=== PATIENT | female | born 1970 | race Caucasian/White ===

== ENCOUNTER 2019-03-16 13:56 | Outpatient (CLI) | payer OTHER ==
--- NOTE | 2019-03-16 14:22 | RAD ---
PA AND LATERAL VIEWS CHEST: Date: 03/16/19 HISTORY: Cough and fever. FINDINGS: The heart size is normal. The lungs are expanded without focal areas of consolidation, pneumothoraces , or pleural effusions. There are degenerative changes in the spine. IMPRESSION: No radiographic evidence of acute cardiopulmonary process. POS: [facility]
== END 2019-03-16 13:57 | disposition home or self-care (01) ==
LOC: RAD-FRANK 13:56
PROVIDERS: ATTEND Nurse Practitioner Family
DX: R50.9 Fever, unspecified (principal); R05 Cough
CPT/HCPCS: 71046

== ENCOUNTER 2021-05-10 08:13 | Outpatient (CLI) | payer BC | END 2021-05-10 08:14 | disposition home or self-care (01) | LOC: RAD-FRANK 08:13 | PROVIDERS: ATTEND Nurse Practitioner Family | DX: M25.552 Pain in left hip (principal) ==

== ENCOUNTER 2021-12-14 07:55 | Outpatient (CLI) | payer BC | END 2021-12-14 07:56 | disposition home or self-care (01) | LOC: RAD-FRANK 07:55 | PROVIDERS: ATTEND Nurse Practitioner Family | DX: M79.672 Pain in left foot (principal) ==

== ENCOUNTER 2022-02-23 14:14 | Outpatient (CLI) | payer BC ==
[2022-02-23 15:20] LABS: #Eosinphils 0.1 10x3/uL (0.0-0.5); #Monocytes 0.6 10x3/uL (0.0-1.1); %Basophils 0.3 % (0.0-2.0); %Eosinophils 1.4 % (0.0-6.0); %Lymphocytes 28.4 % (18.0-47.0); %Monocytes 9.2 % (0.0-10.0); %Neutrophils 60.4 % (40.0-75.0); Hemoglobin 12.8 g/dL (12.0-15.5); Mean Corpuscular Hemoglobin 29.2 pg (27.0-33.0); Mean Corpuscular Volume 88.6 fl (81.6-98.3); Mean Platelet Volume 9.1 fl (7.4-10.4); Platelet Count 257 10x3/uL (150-450); RBC Distribution Width 13.6 % (11.5-14.5); Red Blood Cell (RBC) Count 4.38 10x6/uL (3.90-5.03); White Blood Cell (WBC) Count 6.6 10x3/uL (3.5-10.5)
[2022-02-23 15:35] LABS: Prothrombin Time 10.7 sec (9.5-12.1)
[2022-02-23 15:45] LABS: Anion Gap 14 mmol/L (10-20); BUN (Urea Nitrogen) 14 mg/dL (9.8-20.1); Calc. Creatinine Clearance 0 mL/min (70-130); Calcium 9.4 mg/dL (7.8-10.44); Carbon Dioxide 23 mmol/L (22-29); Chloride 107 mmol/L (98-107); Glucose 89 mg/dL (70-105); Potassium 3.8 mmol/L (3.5-5.1); Sodium 140 mmol/L (136-145)
[2022-02-24 16:10] LABS: SARS-CoV-2 PCR by NAA Not Detected (NotDetected)
== END 2022-02-23 14:15 | disposition home or self-care (01) ==
LOC: LABBT 14:14
PROVIDERS: ATTEND Orthopaedic Surgery
DX: Z01.818 Encounter for other preprocedural examination (principal); M16.12 Unilateral primary osteoarthritis, left hip; Z20.822 Contact with and (suspected) exposure to COVID-19
CPT/HCPCS: 80048; 85025; 85610; 87081; 93005; 93010; U0003; U0005

== ENCOUNTER 2022-02-27 07:24 | Observation (INO) | payer BC ==
[2022-02-26 08:38] VITALS: BMI 34.5
[2022-02-27] MEDS ORDERED: Sodium Chloride 0.9% 100 ML ONE (07:44)
[2022-02-27] MEDS ORDERED: Tranexamic Acid 1,000 MG/10 ML VIAL ONE ×2 (07:44→12:27)
[2022-02-27] MEDS ORDERED: Vancomycin HCl 1.5 GM in Sodium Chloride 0.9% 250 ML 300 ML IVPB SCH ×2 (08:00→21:00)
[2022-02-27] MEDS ORDERED: Clindamycin/D5W 600 MG in Premix Bag 1 BAG IVPB SCH (08:00)
[2022-02-27] MEDS ORDERED: Midazolam HCl 2 mg/2 ml Vial ONE (08:11)
[2022-02-27] MEDS ORDERED: Fentanyl 100 MCG/2 ML VIAL ONE ×4 (08:12→12:35)
[2022-02-27] MEDS ORDERED: Levofloxacin 500 mg/D5W 100 ml Premix Bag ONE (09:25)
[2022-02-27] MEDS ORDERED: Clindamycin/D5W 600 mg/50 ml Premix Bag ONE (09:25)
[2022-02-27] MEDS ORDERED: Bupivacaine 0.25% 10 ML VIAL ONE (09:40)
[2022-02-27] MEDS ORDERED: SUGAMMADEX SODIUM 200 MG/2 ML VIAL ONE (09:40)
[2022-02-27] MEDS ORDERED: Succinylcholine 200 MG/10 ml SYRINGE FS ONE (09:48)
[2022-02-27] MEDS ORDERED: PHENYLEPHRINE-NS 100 MCG/ML 10 ML SYRINGE ONE (09:48)
[2022-02-27] MEDS ORDERED: ePHEDrine 50 MG/ML VIAL ONE (09:48)
[2022-02-27] MEDS ORDERED: Dexamethasone 20 MG/5 ML VIAL ONE (09:48)
[2022-02-27] MEDS ORDERED: PROPOFOL 200 MG/20 ML VIAL ONE (09:48)
[2022-02-27] MEDS ORDERED: Lidocaine 1.5% w/Epi 1:200K 30 ML VIAL (Epid Use) ONE (09:48)
[2022-02-27] MEDS ORDERED: Rocuronium Bromide 10 MG/ML (10ML VIAL) ONE (09:48)
[2022-02-27] MEDS ORDERED: Lidocaine 1% PF 5 ML VIAL ONE (09:48)
[2022-02-27] MEDS ORDERED: Ondansetron PF 4 MG/2 ML Vial ONE (09:48)
[2022-02-27] MEDS ORDERED: Naloxone HCl 0.4 mg/ml Vial IV PRN (10:00)
[2022-02-27] MEDS ORDERED: traMADol HCl 50 MG TAB PO PRN ×2 (10:00)
[2022-02-27] MEDS ORDERED: Zolpidem Tartrate 5 MG TAB PO PRN ×2 (10:00→12:23)
[2022-02-27] MEDS ORDERED: diphenhydrAMINE 50 MG/ML VIAL IVP PRN (10:00)
[2022-02-27] MEDS ORDERED: Moisturizing Cream (Eucerin) 113 GM JAR TOP PRN (10:00)
[2022-02-27] MEDS ORDERED: Naloxone HCl 0.4 mg/ml Vial IVP PRN (10:00)
[2022-02-27] MEDS ORDERED: diphenhydrAMINE 50 MG/ML VIAL IM PRN (10:00)
[2022-02-27] MEDS ORDERED: Ondansetron PF 4 MG/2 ML Vial IVP PRN ×2 (10:00→12:23)
[2022-02-27] MEDS ORDERED: Promethazine HCl 25 MG SUPP PR PRN (10:00)
[2022-02-27] MEDS ORDERED: Bupivacaine 0.25% 10 ML VIAL EPIDURAL PRN (10:00)
[2022-02-27] MEDS ORDERED: Promethazine HCl 25 MG/ML VIAL IM PRN ×2 (10:00→12:23)
[2022-02-27] MEDS ORDERED: Acetaminophen 325 MG TAB PO PRN ×2 (10:07→12:23)
[2022-02-27] MEDS ORDERED: Tranexamic Acid 1,000 MG in Sodium Chloride 0.9% 100 ML IVPB SCH (12:00)
[2022-02-27] MEDS ORDERED: diphenhydrAMINE 25 MG CAP PO PRN (12:23)
[2022-02-27] MEDS ORDERED: diphenhydrAMINE 50 MG/ML VIAL ONE (15:16)
[2022-02-27] MEDS: Ketorolac Tromethamine 30 MG/ML VIAL IVP SCH ×2 (16:57→17:59)
[2022-02-27] MEDS: Sodium Chloride 0.9% 1,000 ML IV SCH ×2 (16:57→20:47)
[2022-02-27] MEDS: HYDROcodone/Acetaminophen 5/325 mg Tablet PO PRN (18:00)
[2022-02-27] MEDS: Clindamycin/D5W 900 MG in Premix Bag 1 BAG IVPB SCH (18:01)
[2022-02-27] MEDS: diphenhydrAMINE 25 MG CAP PO PRN (20:39)
[2022-02-27] MEDS: Aspirin 81 mg Enteric Coated Tablet PO SCH (20:39)
[2022-02-28] MEDS: Clindamycin/D5W 900 MG in Premix Bag 1 BAG IVPB SCH (00:02)
[2022-02-28] MEDS: HYDROcodone/Acetaminophen 5/325 mg Tablet PO PRN ×2 (00:02→17:51)
[2022-02-28] MEDS: Ketorolac Tromethamine 30 MG/ML VIAL IVP SCH ×4 (00:03→17:51)
[2022-02-28] MEDS: Fentanyl 5 mcg/Bup 0.075% Cadd 100 ML EPIDURAL SCH ×2 (01:03→17:52)
[2022-02-28 05:22] LABS: Hemoglobin 9.7 g/dL (12.0-16.0); Mean Corpuscular HGB CONC 34.1 g/dL (32.0-36.0); Mean Corpuscular Hemoglobin 31.7 pg (27.0-31.0); Mean Corpuscular Volume 92.9 fL (78.0-98.0); Mean Platelet Volume 6.4 fL (7.4-10.4); Platelet Count 195 thou/uL (130-400); RBC Distribution Width 12.3 % (11.5-14.5); Red Blood Cell (RBC) Count 3.05 mill/uL (4.20-5.40); White Blood Cell (WBC) Count 7.3 thou/uL (4.8-10.8)
[2022-02-28] MEDS: diphenhydrAMINE 25 MG CAP PO PRN ×4 (05:31→20:18)
[2022-02-28] MEDS: Sodium Chloride 0.9% 1,000 ML IV SCH ×2 (09:57→19:34)
[2022-02-28] MEDS: Ferrous Gluconate 324 MG TAB PO SCH ×2 (10:02→20:18)
[2022-02-28] MEDS: Multivitamin W/ Minerals 1 TAB PO SCH (10:02)
[2022-02-28] MEDS: Senokot S 8.6-50 MG TAB PO SCH ×2 (10:03→20:18)
[2022-02-28] MEDS: Aspirin 81 mg Enteric Coated Tablet PO SCH ×3 (13:19→20:18)
[2022-03-01] MEDS: HYDROcodone/Acetaminophen 5/325 mg Tablet PO PRN ×4 (00:04→13:40)
[2022-03-01] MEDS: Ketorolac Tromethamine 30 MG/ML VIAL IVP SCH ×2 (00:05→05:42)
[2022-03-01] MEDS: Sodium Chloride 0.9% 1,000 ML IV SCH (02:18)
[2022-03-01 05:17] LABS: Hemoglobin 9.3 g/dL (12.0-16.0); Mean Corpuscular HGB CONC 33.2 g/dL (32.0-36.0); Mean Corpuscular Hemoglobin 30.7 pg (27.0-31.0); Mean Corpuscular Volume 92.4 fL (78.0-98.0); Mean Platelet Volume 6.4 fL (7.4-10.4); Platelet Count 181 thou/uL (130-400); RBC Distribution Width 12.6 % (11.5-14.5); Red Blood Cell (RBC) Count 3.03 mill/uL (4.20-5.40); White Blood Cell (WBC) Count 5.2 thou/uL (4.8-10.8)
[2022-03-01] MEDS: Senokot S 8.6-50 MG TAB PO SCH (09:22)
[2022-03-01] MEDS: Multivitamin W/ Minerals 1 TAB PO SCH (09:22)
[2022-03-01] MEDS: Aspirin 81 mg Enteric Coated Tablet PO SCH (09:22)
[2022-03-01] MEDS: Ferrous Gluconate 324 MG TAB PO SCH (09:22)
[2022-03-01 15:51] VITALS: BP 127/68; TEMP 98
== END 2022-03-01 16:55 | disposition home or self-care (01) ==
LOC: SDC 07:24 → SJJU 14:29
PROVIDERS: ADMIT Orthopaedic Surgery; ATTEND Orthopaedic Surgery
PROC: 0SRB01Z Replacement of Left Hip Joint with Metal Synthetic Substitute, Open Approach (ICD-10-PCS; principal; 2022-03-01)
DX: M16.12 Unilateral primary osteoarthritis, left hip (principal); I10 Essential (primary) hypertension; M41.27 Other idiopathic scoliosis, lumbosacral region; Z79.899 Other long term (current) drug therapy; Z88.0 Allergy status to penicillin
CPT/HCPCS: 36415; 72170; 85027; 96365; 96366; 96375; 96376; C1776; G0378; J1100; J1200; J1885; J1956; J2001; J2250; J2405; J2704; J3010; J3370; J3490; J7050; S0020